=== PATIENT | female | born 1960 | race Caucasian/White ===

== ENCOUNTER 2022-01-17 06:52 | Outpatient (CLI) | payer BC | END 2022-01-17 06:53 | disposition home or self-care (01) | LOC: BICULT 06:52 | PROVIDERS: ATTEND Family Medicine | DX: R10.9 Unspecified abdominal pain (principal); M54.9 Dorsalgia, unspecified; R11.0 Nausea; K80.20 Calculus of gallbladder without cholecystitis without obstruction; K82.8 Other specified diseases of gallbladder | CPT/HCPCS: 76700 ==

== ENCOUNTER 2022-03-13 08:30 | Outpatient (CLI) | payer BC ==
[2022-03-13 10:08] LABS: ALT (SGPT) 23 U/L (8-55); AST (SGOT) 16 U/L (5-34); Albumin 4.3 g/dL (3.4-4.8); Alkaline Phosphatase 90 U/L (40-110); Anion Gap 13 mmol/L (10-20); BUN (Urea Nitrogen) 18 mg/dL (9.8-20.1); Bilirubin, Direct 0.2 mg/dL (0.1-0.3); Bilirubin, Total 0.5 mg/dL (0.2-1.2); Calc. Creatinine Clearance 0 mL/min (70-130); Calcium 9.5 mg/dL (7.8-10.44); Carbon Dioxide 26 mmol/L (23-31); Chloride 104 mmol/L (98-107); Glucose 194 mg/dL (80-115); Potassium 5.4 mmol/L (3.5-5.1); Protein, Total 6.9 g/dL (5.8-8.1); Sodium 138 mmol/L (136-145)
[2022-03-13 10:11] LABS: #Basophils 0.2 10x3/uL (0.0-0.2); #Eosinphils 0.4 10x3/uL (0.0-0.5); #Monocytes 1.3 10x3/uL (0.0-1.1); #Neutrophils 6.8 10x3/uL (1.5-8.4); %Basophils 1.9 % (0.0-2.0); %Eosinophils 3.8 % (0.0-6.0); %Lymphocytes 23.1 % (18.0-47.0); %Monocytes 11.4 % (0.0-10.0); %Neutrophils 59.6 % (40.0-75.0); Hemoglobin 13.8 g/dL (12.0-15.5); Mean Corpuscular Hemoglobin 32.2 pg (27.0-33.0); Mean Corpuscular Volume 97.7 fl (81.6-98.3); Mean Platelet Volume 10.8 fl (7.4-10.4); Platelet Count 435 10x3/uL (150-450); RBC Distribution Width 13.5 % (11.5-14.5); Red Blood Cell (RBC) Count 4.28 10x6/uL (3.90-5.03); White Blood Cell (WBC) Count 11.3 10x3/uL (3.5-10.5)
[2022-03-13 16:10] LABS: SARS-CoV-2 PCR by NAA Not Detected (NotDetected)
== END 2022-03-13 08:31 | disposition home or self-care (01) ==
LOC: LABBT 08:30
PROVIDERS: ATTEND Surgery
DX: Z01.812 Encounter for preprocedural laboratory examination (principal); K80.20 Calculus of gallbladder without cholecystitis without obstruction; Z20.822 Contact with and (suspected) exposure to COVID-19
CPT/HCPCS: 80048; 80076; 85025; U0003; U0005

== ENCOUNTER 2022-03-16 06:01 | Day surgery (SDC) | payer BC ==
[2022-03-16] MEDS ORDERED: Bupivacaine 0.25% 10 ML VIAL ONE (06:45)
[2022-03-16] MEDS ORDERED: Lidocaine 1% w/Epinephrine 1:100K 20 ML VIAL ONE (06:45)
[2022-03-16] MEDS ORDERED: Fentanyl 100 MCG/2 ML VIAL ONE ×2 (07:05→09:26)
[2022-03-16] MEDS ORDERED: Lidocaine 1% MPF 2 ML VIAL ONE (07:11)
[2022-03-16] MEDS ORDERED: ceFAZolin (BATCH) 2 GM/100 ML BAG ONE (07:29)
[2022-03-16] MEDS ORDERED: PROPOFOL 200 MG/20 ML VIAL ONE (07:39)
[2022-03-16] MEDS ORDERED: Esmolol 100 MG/10 ML VIAL ONE (07:39)
[2022-03-16] MEDS ORDERED: Ondansetron PF 4 MG/2 ML Vial ONE (07:39)
[2022-03-16] MEDS ORDERED: Dexamethasone 20 MG/5 ML VIAL ONE (07:39)
[2022-03-16] MEDS ORDERED: Rocuronium Bromide 10 MG/ML (10ML VIAL) ONE (07:39)
[2022-03-16] MEDS ORDERED: Ketorolac Tromethamine 30 MG/ML VIAL ONE (07:39)
[2022-03-16] MEDS ORDERED: Lidocaine 1% PF 5 ML VIAL ONE (07:39)
[2022-03-16] MEDS ORDERED: Glycopyrrolate 0.2 MG/ML 5 ML SYRINGE ONE (07:39)
[2022-03-16 07:44] LABS: Potassium 4.2 mmol/L (3.5-5.1)
== END 2022-03-16 11:30 | disposition home or self-care (01) ==
LOC: SDC 06:01
PROVIDERS: ATTEND Surgery
PROC: 0FT44ZZ Resection of Gallbladder, Percutaneous Endoscopic Approach (ICD-10-PCS; principal; 2022-03-16)
PROC: 8E0W8CZ Robotic Assisted Procedure of Trunk Region, Via Natural or Artificial Opening Endoscopic (ICD-10-PCS; principal; 2022-03-16)
DX: K80.10 Calculus of gallbladder with chronic cholecystitis without obstruction (principal); I10 Essential (primary) hypertension; E11.9 Type 2 diabetes mellitus without complications; E03.9 Hypothyroidism, unspecified; Z79.84 Long term (current) use of oral hypoglycemic drugs; Z79.890 Hormone replacement therapy; Z79.899 Other long term (current) drug therapy; Z88.5 Allergy status to narcotic agent
CPT/HCPCS: 36416; 84132; 88304; 93005; 93010; C1776; J0690; J1100; J1885; J2405; J2704; J3010; S0020

== ENCOUNTER 2023-01-03 08:42 | Outpatient (CLI) | payer BC | END 2023-01-03 08:43 | disposition home or self-care (01) | LOC: BICMAMMO 08:42 | PROVIDERS: ATTEND Family Medicine | DX: Z12.31 Encounter for screening mammogram for malignant neoplasm of breast (principal); Z80.3 Family history of malignant neoplasm of breast | CPT/HCPCS: 77063; 77067 ==

== ENCOUNTER 2023-07-09 08:26 | Emergency (ER) | payer BC ==
[2023-07-09] MEDS ORDERED: Ondansetron ODT 4 MG TAB ONE (09:36)
[2023-07-09] MEDS ORDERED: Morphine 4 MG/ML VIAL ONE (09:36)
[2023-07-09] MEDS ORDERED: Lidocaine 4% Patch TD SCH (10:00)
[2023-07-09] MEDS ORDERED: Transdermal Patch Removal TOP SCH (22:00)
== END 2023-07-09 11:03 | disposition home or self-care (01) ==
LOC: ERS 08:26
DX: M25.561 Pain in right knee (principal); E11.9 Type 2 diabetes mellitus without complications; I10 Essential (primary) hypertension; E03.9 Hypothyroidism, unspecified; E78.5 Hyperlipidemia, unspecified; Z79.84 Long term (current) use of oral hypoglycemic drugs; Z79.899 Other long term (current) drug therapy
CPT/HCPCS: 96372; J2270; Q0162

== ENCOUNTER 2024-02-13 13:16 | Outpatient (CLI) | payer BC | END 2024-02-13 13:17 | disposition home or self-care (01) | LOC: BICMAMMO 13:16 | PROVIDERS: ATTEND Family Medicine | DX: Z12.31 Encounter for screening mammogram for malignant neoplasm of breast (principal); Z80.3 Family history of malignant neoplasm of breast | CPT/HCPCS: 77063; 77067 ==